=== PATIENT | male | born 1970 | race Caucasian/White ===

== ENCOUNTER 2022-08-26 05:56 | Day surgery (SDC) | payer OTHER ==
[2022-08-26] MEDS ORDERED: Lactated Ringers 1,000 ML IV SCH (06:30)
[2022-08-26] MEDS ORDERED: Xylocaine-Mpf 2% 5 Ml Vial ONE (07:00)
[2022-08-26] MEDS ORDERED: DIPRIVAN 200 MG/20 ML IV ONE (07:00)
[2022-08-26] MEDS ORDERED: ATROPINE SULFATE 1MG ONE (07:13)
[2022-08-26 08:09] VITALS: BP 124/83; PULSE 47; O2SAT 100
--- NOTE | 2022-08-26 12:41 | OP ---
SURGERY DATE: 08/26/22 SURGERY TIME: 658 PREOPERATIVE DIAGNOSIS: 1. SCREENING EXAM. POSTOPERATIVE DIAGNOSIS: 1. NORMAL COLON. PROCEDURE: 1. Colonoscopy. SURGEON: Dr. Mesa. ANESTHESIA: MAC. Medications given by the Anesthesia Department. BRIEF HISTORY: The patient is a 51 y/o WM patient presenting now for screening colonoscopy. He was appraised of the risks of the procedure including the risk of perforation, phlebitis, untoward reaction to medication, bleeding, and missed lesions. The patient verbalized his understanding and desired to have the procedure performed. DESCRIPTION OF PROCEDURE: The patient was given the medications by the Anesthesia Department. He had continuous pulse oximetry, ECG monitoring, and intermittent BP monitoring during the examination. He was placed in the left lateral decubitus position. A digital rectal examination was performed and revealed normal anal sphincter tone, no masses, and a normal prostate. The flexible Olympus pediatric colonoscope was used to intubate the rectum. A view of the colon was developed sequentially to the cecum. Upon insertion and withdrawal, including a retroflex view in the rectum, no mucosal lesions were encountered. The scope was removed from the patient who tolerated the procedure well and was sent back to OP recovery in good condition. The prep was noted to be good.
== END 2022-08-26 08:10 | disposition home or self-care (01) ==
LOC: SDC 05:56
PROVIDERS: ATTEND Family Medicine
DX: Z12.11 Encounter for screening for malignant neoplasm of colon (principal)
CPT/HCPCS: J0461; J2704